=== PATIENT | male | born 1960 | race Caucasian/White ===

== ENCOUNTER 2020-01-22 09:07 | Inpatient (IN) ==
--- NOTE | 2020-01-04 13:31 | PAT Medication Instructions ---
Medication Instructions Date of Service January 04, 2020 Home Medications citalopram [Celexa] 20 mg PO QAM gabapentin 300 mg PO QID PRN rosuvastatin 5 mg PO QAM Take morning of surgery With a small sip of water, OTHERWISE NOTHING TO EAT OR DRINK AFTER MIDNIGHT: citalopram [Celexa] 20 mg PO QAM gabapentin 300 mg PO QID PRN (if needed) rosuvastatin 5 mg PO QAM Take evening before surgery gabapentin 300 mg PO QID PRN (if needed) Other Notes If you have any questions please call us at [phone] or [phone] or [phone] or [phone]
--- NOTE | 2020-01-08 10:25 | Anesthesiology Consultation ---
Date of Service January 08, 2020 Assessment & Plan (1) Encounter for pre-operative examination: Per PAT assessment on 01/01: Travel screen- Lives in [place]. Travel to [place]. No known COVID-19 positive contacts. Uses PPE. 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 Patient reports that there are current positive cases in residents/staff (Patient brandon has had negative work protocol covid testing- will be tested again 01/08). No current COVID-19 related symptoms for patient or fiance. Patient advised to notify surgeon if any development of symptoms in patient/fiance prior to surgery. Surgeon arranging preop COVID testing (01/15 at PCP). Awaiting results. Will plan for [facility]bot/rapid testing AM DOS d/t brandon's work hx. Chart Review Chart Review: Acceptable Risk for Surgery and Patient seen in Pre Admission Testing Teaching & Discussion Pre-Anesthesia Teaching/Discussion Notes: Instructed NPO after midnight before surgery,except medications with 15 cc of water. Medication instructions provided according to the PAT guidelines. History Surgery Operation Date: 01/22/20 07:45 Proposed Procedures p T11-L2 Decompression and Fusion, Possible L2-S1 Hardware Removal, Spinal Cord Monitoring - Jose M Tejada, Height/Weight Height: 5 ft 11 in Weight: 124 kg Allergies Allergy/AdvReac Type Severity Reaction Status Date / Time ibuprofen AdvReac Intermediate abdominal Verified 01/08/20 09:26 pain Medications Home Medications Medication Instructions Recorded Confirmed Last Taken citalopram [Celexa] 20 mg PO QAM 01/02/20 01/02/20 Unknown gabapentin 300 mg PO QID PRN 01/02/20 01/02/20 Unknown rosuvastatin 5 mg PO QAM 01/02/20 01/02/20 Unknown Past Medical History Medical History Anxiety Chronic back pain Hyperlipidemia Obesity Temporomandibular joint disorder + right sided clicking, no locking Exercise / Class Metabolic Activity III < 4 Walking/Shop/Light housework (uses cane PRN) Past Family History Family History Mother Family history of diabetes mellitus Past Surgical History Surgical History Fusion of spine lumbar H/O excision of mass hair follicle/mass from top of head excision History of repair of rotator cuff right Past Anesthesia History No Hx of Anesthesia Complications and No Family Hx of Anesthesia Complications History of PONV No Hx of PONV and No Hx of Motion Sickness Social History Smoking Status: Never smoker Do You Dip or Chew Tobacco: Yes (1 CAN/DAY- ADVISED NPO AM DOS) Hx Alcohol Use: Yes Alcohol type: beer Alcohol Intake Frequency Comment: RARE Hx Substance Use: No Review of Systems Patient denies chest pain, shortness of breath, dyspnea on exertion, joint pain, reflux, cough, wheezing, palpitations. Physical Exam Vital Signs VITALS BP P 57 TEMP 98.7 SP02 96%RA RESP 16 PHYSICAL Full neck and c-spine range of motion. Full TMJ range of motion. TMD 3.5 finger breaths Mallampati Score 1 Dentition: missing sides, lower right side chipped tooth Lungs: clear throughout to auscultation Cardiac: regular rate and rhythm, no murmurs noted Spine: normal Carotid arteries: negative bruit Extremities: no edema Thick neck + Trimmed jean Testing Laboratory Results 01/08/20 10:50 01/08/20 10:50 PT 10.8 Seconds (9.0-12.0) 01/08/20 10:50 INR 1.0 (0.9-1.1) 01/08/20 10:50 APTT 29.1 Seconds (21.0-31.0) 01/08/20 10:50 Urine Color Yellow 01/08/20 10:50 Urine Appearance Clear (Clear) 01/08/20 10:50 Urine pH 5.5 (4.5-7.5) 01/08/20 10:50 Ur Specific [place] 1.010 (1.000-1.030) 01/08/20 10:50 Urine Protein Negative (Negative) 01/08/20 10:50 Urine Glucose (UA) Negative (Negative) 01/08/20 10:50 Urine Ketones Negative (Negative) 01/08/20 10:50 Urine Nitrite Negative (Negative) 01/08/20 10:50 Ur Leukocyte Esterase Negative (Negative) 01/08/20 10:50 Urine RBC 0-4 /hpf (0-4) 01/08/20 10:50 Urine WBC 0-5 /hpf (0-5) 01/08/20 10:50 Ur Epithelial Cells 5-10 /lpf (0-5) H 01/08/20 10:50 Blood Type A Positive 01/08/20 10:50 Antibody Screen NEGATIVE 01/08/20 10:50 Electrocardiogram Date: 01/08/20 SB at 56bpm. Chest X-Ray Date: 01/08/20 Findings: + NAD
--- NOTE | 2020-01-08 11:24 | XRay Report ---
XR chest Pre-admission PA/Lat CLINICAL HISTORY: Preoperative evaluation. COMPARISON STUDY: Chest radiograph August 25, 2015. FINDINGS: Lung volumes are normal. Lungs are clear. There is no pneumothorax or pleural effusion. Car diac size is normal. Mediastinal contours are normal. There is no evidence for pulmonary edema. IMPRESSION: No acute cardiopulmonary findings. ACT 112: Negative or not required by law. Electronically signed by: Steve Wells M.D. 01/08/2020 11:23 AM
[2020-01-08 11:46] LABS: Basophils # (auto) 0.08 K/uL (0-0.2); Basophils % (auto) 1.7 %; Eosinophils # (auto) 0.12 K/uL (0-0.5); Eosinophils % (auto) 2.5 %; Hematocrit (blood only) 42.8 % (42-52); Hemoglobin 14.5 g/dL (14.0-18.0); Immature Granulocytes # (auto) 0.01 K/uL (0.00-0.02); Immature Granulocytes % (auto) 0.2 %; Lymphocytes # (auto) 2.02 K/uL (1.2-3.4); Lymphocytes % (auto) 42.2 %; Mean Corpuscular Hemoglobin 31.2 pg (25-34); Mean Corpuscular Hgb Conc 33.9 g/dL (32-36); Mean Platelet Volume 10.9 fL (7.4-10.4); Monocytes # (auto) 0.45 K/uL (0.11-0.59); Monocytes % (auto) 9.4 %; Neutrophils # (auto) 2.11 K/uL (1.4-6.5); Platelet Count 215 K/uL (130-400); RDW Coefficient of Variation 12.7 % (11.5-14.5); RDW Standard Deviation 42.7 fL (36.4-46.3); Red Blood Count 4.65 M/uL (4.7-6.1); White Blood Count 4.79 K/uL (4.8-10.8)
[2020-01-08 12:10] LABS: Partial Thromboplastin Time 29.1 Seconds (21.0-31.0); Prothrombin Time 10.8 Seconds (9.0-12.0)
[2020-01-08 12:34] LABS: Appearance Urine Clear (Clear); Bilirubin Urine Negative (Negative); Blood Urine Trace (Negative); Color Urine Yellow; Glucose Urine UA Negative (Negative); Ketones Urine Negative (Negative); Leukocyte Esterase Urine Negative (Negative); Nitrite Urine Negative (Negative); Protein Urine Negative (Negative); Urobilinogen Urine Negative (Negative); pH Urine 5.5 (4.5-7.5)
[2020-01-08 12:51] LABS: Mucus Urine Present (None Prsent)
[2020-01-08 12:54] LABS: Bacteria Urine Negative (Negative); RBC Urine 0-4 /hpf (0-4); WBC Urine 0-5 /hpf (0-5)
--- NOTE | 2020-01-08 13:11 | Electrocardiogram Report ---
Test Reason : Blood Pressure : / mmHG Vent. Rate : 056 BPM Atrial Rate : 056 BPM P-R Int : 134 ms QRS Dur : 112 ms QT Int : 448 ms P-R-T Axes : 051 020 038 degrees QTc Int : 432 ms Sinus bradycardia Otherwise normal ECG When compared with ECG of 25-AUG-2015 08:42, No significant change was found Confirmed by Juno Vincent ([id number]) on 01/08/2020 1:10:52 PM Referred By: Jose M Tejada Confirmed By:Juno Vincent
[2020-01-08 13:56] LABS: BUN Creatinine Ratio 7.5 (10-20); Creatinine Clr Calc Pharmacy 98.4 ml/min; Est GFR (Non-African American) 73.3; Potassium 4.4 mmol/L (3.5-5.1)
[~2020-01-22 09:07] MED LIST: ACETAMINOPHEN 500 MG TAB PO SCH; CEFAZOLIN 3000MG 72.5 ML IV SCH; CeleBREX 200 MG CAP PO SCH; GABAPENTIN 600 MG DOSE PO SCH; LR 15ML/HR IV SCH
--- NOTE | 2020-01-22 09:23 | History & Physical Bridge Note ---
Date of Service January 22, 2020 History & Physical Bridge Note I have examined the patient, reviewed the History & Physical and in the interval since the performance of the History & Physical I have noted the following changes of clinical significance: no changes noted
--- NOTE | 2020-01-22 09:24 | History & Physical Report ---
Date of Service January 22, 2020 Assessment & Plan (1) Lumbar stenosis with neurogenic claudication: Admission and Anticipated Discharge Date Admission Date: T11-L2 decompression fusion, possible L2-S1 hardware removal History of Present Illness Chief Complaint: Back and bilateral leg pain Primary Care Provider: Pnio Leon MD This is a 59-year-old male who presents with chronic persistent back and leg pain. After failing course of nonoperative care is here for surgical intervention. Allergies Allergy/AdvReac Type Severity Reaction Status Date / Time ibuprofen AdvReac Intermediate abdominal Verified 01/08/20 09:26 pain Home Medications Home Medications Medication Instructions Recorded Confirmed Type citalopram [Celexa] 20 mg PO QAM 01/02/20 01/02/20 History gabapentin 300 mg PO QID PRN 01/02/20 01/02/20 History rosuvastatin 5 mg PO QAM 01/02/20 01/02/20 History Past Med/Surg History Medical History Anxiety Chronic back pain Hyperlipidemia Obesity Temporomandibular joint disorder + right sided clicking, no locking Surgical History Fusion of spine lumbar H/O excision of mass hair follicle/mass from top of head excision History of repair of rotator cuff right Family History Mother Family history of diabetes mellitus Social History Smoking Status: Never smoker Second Hand Exposure: No; Do You Dip or Chew Tobacco: Yes (1 CAN/DAY- ADVISED NPO AM DOS); Hx Alcohol Use: Yes Alcohol type: beer Hx Substance Use: No Preferred Language: Latvian Communication Ability: Effective Program Production Specialist Required: No Beliefs That Will Affect Care: None Current Living Situation: Significant Other Other Information That Helps Us Care for You: No Feels Safe at Home: Yes Safety Concerns: Feels Safe At This Time Physical Exam Physical Exam: Patient is alert and oriented neurologically intact. Heart regular rate and rhythm. Lungs clear to auscultation.
[2020-01-22] MEDS ORDERED: MIDAZOLAM HCL 1 MG/ML 2ML VIAL ONE (09:35)
[2020-01-22] MEDS ORDERED: LIDOCAINE HCL 2% 2 ML VIAL/AMP(20MG/ML) INFIL ONE (09:35)
[2020-01-22] MEDS ORDERED: LARYING-O-JET KIT (LTA) ONE (09:35)
[2020-01-22] MEDS ORDERED: PROPOFOL IV EMULSION 10 MG/ML 20 ML VIAL IV ONE (09:35)
[2020-01-22] MEDS ORDERED: HYDROmorphone INJ 2 MG/ML SYR/VIAL ONE ×2 (09:35→12:20)
[2020-01-22] MEDS ORDERED: BACITRACIN INJ 50,000 UNIT VIAL ONE (09:36)
[2020-01-22] MEDS ORDERED: BUPIVACAINE/EPINEPHRINE 0.25% 1:200,000 30 ML VIAL ONE (09:36)
[2020-01-22] MEDS ORDERED: GLYCOPYRROLATE 0.2 MG/ML VIAL ONE (09:43)
[2020-01-22] MEDS ORDERED: NEOSTIGMINE METHYLSULFATE 1 MG/ML 10ML VIAL ONE (09:43)
[2020-01-22] MEDS ORDERED: ROCURONIUM BROMIDE 10 MG/ML 5 ML VIAL IV ONE (09:43)
[2020-01-22] MEDS ORDERED: PROMETHAZINE HCL 12.5 MG in SODIUM CHLORIDE 0.9% 50 ML IV PRN ×2 (10:38→15:00)
[2020-01-22] MEDS ORDERED: ePHEDrine sulfate 50 MG/ML AMP IV PRN (10:38)
[2020-01-22] MEDS ORDERED: HYDROmorphone INJ 2 MG/ML SYR/VIAL IV PRN (10:38)
[2020-01-22] MEDS ORDERED: ONDANSETRON INJ 2 MG/ML 2 ML VIAL IV PRN ×2 (10:38→15:00)
[2020-01-22] MEDS ORDERED: METOCLOPRAMIDE HCL INJ 5 MG/ML 2 ML VIAL IV PRN ×2 (10:38→15:00)
[2020-01-22] MEDS ORDERED: ATROPINE SULFATE 0.1 MG/ML 10ML SYR IV PRN (10:38)
[2020-01-22] MEDS ORDERED: fentaNYL citrate 100 MCG/2 ML VIAL IV PRN (10:38)
[2020-01-22] MEDS ORDERED: ALBUMIN HUMAN 5% 12.5 GM/250 ML VIAL IV ONE (11:14)
[2020-01-22] MEDS ORDERED: FLOSEAL HEMOSTATIC MATRIX 10ML TOP ONE (12:01)
--- NOTE | 2020-01-22 13:30 | Operative Report ---
Post Operative Report Pre & Post Diagnosis Operation Date: 01/22/20 10:35 Pre-Op Diagnosis: Spinal Stenosis, Lumbar Region with Neurogenic Claudication Post-Op Diagnosis: Spinal Stenosis, Lumbar Region with Neurogenic Claudication I identified the patient and participated in the time-out.: Yes Procedure Operation Date: 01/22/20 10:35 Actual Procedures 1. Decompression with bilateral medial facetectomies T12-L1 and L1-L2. #2 posterior spinal fusion T11-T12 T12-L1 L1-L2. #3 placement posterior instrumentation T11-L1 with shepherds hooks connecting to the previous instrumentation. #4 interbody fusion L1-L2. #5 placed a peek cage 9 x 26 mm at L1-L2. #6 placement of locally harvested morselized autograft and posterior gutters. #7 placement infuse collagen sponge, master graft and posterior gutters and ostial amp interbody space. Surgeon Jose M Tejada, DO Veterinary Inspector Maren Arizmendi Estimated Blood Loss 600 Findings See Below The patient is 5 foot 11 inches tall weighing over 122 kg with a BMI in excess of 37. This combined with an EBL in excess of 600 cc created significant technical difficulty. He required our deepest retractors longus instruments in order to perform his procedure. This at least 50% increase to the operative time. Specimens None Indications This is a 59-year-old male known to me the presents above-mentioned diagnosis after failing course of nonoperative care is here for the above-mentioned procedure. Description of Procedure Patient was met with identified informed consent obtained. Patient was then taken to the operative suite underwent elevation placed in a prone position on the Taco table on top of the Raul frame. All bony prominences well-padded eyes inspected to ensure no external pressure placed upon the. This point the thoracolumbar spine was prepped and draped in a sterile fashion. Sharp dissection with the assistance of Bovie cautery was performed down to and exposing the lamina and transverse processes of T11 T12-L1 and instrumentation at L2 and L3. I then performed complete laminectomy of L1 partial laminectomy of T12 including bilateral medial facetectomies and foraminotomies addressing severe stenosis. Pedicle screws in place T8 and T11-T12 12 and L1. Utilized using globus miller hooks and connectors appropriate size rods were contoured cut and placed. By way of transfer approach on the left complete discectomy of L1 to was performed endplates coated to subcortical bleeding bone and a 9 x 26 mm peek cage filled with osteo-bone graft tapped in position. The rods were locked in final position. The transverse processes of T11 T12-L1 and L2 were burred to subcortical bleeding bone. Infuse collagen sponge master graft local autograft was placed posterior gutters. 15 round DAMIEN drain inserted. The incision was then closed with 1 Vicryl the fascia 2-0 Vicryl subcutaneously and 4 Monocryl for final skin closure. Steri-Strip sterile dressings placed. Patient waken taken PACU stable condition. Please note spinal cord monitoring was utilized at the procedure no changes noted. Lastly Maren Arizmendi was present throughout the entire surgery involved in patient positioning complex portions of the surgery and final skin closure. I attest to the content of the Intraoperative Record and any orders documented therein. Any exceptions are noted below.
--- NOTE | 2020-01-22 14:19 | Fluoroscopy Report ---
FL lumbar spine 2-3V CLINICAL HISTORY: T11-L2 DECOMPRESSION AND FUSION COMPARISON STUDY: FLUOROSCOPY TIME: 26 seconds. NUMBER OF FLUOROSCOPIC IMAGES: 3 FINDINGS: 3 fluoroscopic images demonstrate postsurgical changes of thoracolumbar spinal fusion. Ther e are postsurgical changes of an L1-2 discectomy and interbody fusion. There is a right-sided pedicle screw at the T11 level, and bilateral pedicle screws the T12, L1, L2, and L3 levels. Spinal rods ext end into the lower lumbar spine which is not included on the provided images. IMPRESSION: Intraoperative fluoroscopic spot images obtained during a thoracolumbar spinal decompres teresita and fusion ACT 112: Negative or not required by law. Electronically signed by: Edouard Taylor M.D. 01/22/2020 2:18 PM
--- NOTE | 2020-01-22 14:38 | Anesthesiology Progress Note ---
Date of Service January 22, 2020 Anesthesia Post Procedure Vital Signs Vital Signs: Temp Pulse Pulse Resp BP Pulse Ox 01/22/20 14:25 36.3 C L 74 12 143/84 H 99 01/22/20 14:15 75 19 121/73 95 01/22/20 14:05 82 14 118/75 98 01/22/20 13:55 85 16 125/71 97 01/22/20 13:47 36.5 C 80 14 147/73 H 93 01/22/20 09:35 37.2 C 66 18 156/99 H 96 Pain Intensity Lower Back: Pain Intensity: 5 Transfer of Care Handoff Completed per policy Notes Mental Status: alert / awake / arousable and participated in evaluation Patient Amnestic to Procedure: Yes Nausea / Vomiting: adequately controlled Pain: adequately controlled Airway Patency, RR, SpO2: stable & adequate BP & HR: stable & adequate Hydration State: stable & adequate Anesthetic Complications: no major complications apparent
[2020-01-22] MEDS ORDERED: ALUMINUM/MAGNESIUM SUSP 30 ML UDC PO PRN (15:00)
[2020-01-22] MEDS ORDERED: DO NOT ADMINISTER FLU VACCINE PRN (15:00)
[2020-01-22] MEDS ORDERED: HYDROmorphone INJ 1 MG/ML SYRINGE IV PRN (15:00)
[2020-01-22] MEDS ORDERED: OXYCODONE HCL IR 5 MG TAB (IMMEDIATE RELEASE) PO PRN (15:00)
[2020-01-22] MEDS ORDERED: ONDANSETRON 4 MG OD TAB PO PRN (15:00)
[2020-01-22] MEDS ORDERED: LORazepam 0.5 MG TAB PO PRN (15:00)
[2020-01-22] MEDS ORDERED: LORazepam 0.5 MG/1 ML VIAL IV PRN (15:00)
[2020-01-22] MEDS ORDERED: SOD PHOSPHATE/SOD BIPHOSPHATE ENEMA 132 ML BTL PR PRN (15:00)
[2020-01-22] MEDS ORDERED: HYDROmorphone INJ 0.5 MG/0.5 ML SYR IV PRN (15:00)
[2020-01-22] MEDS ORDERED: NALOXONE HCL 0.4 MG/1 ML VIAL/CARP IV PRN (15:00)
[2020-01-22] MEDS ORDERED: bisacodyL 10 MG SUPP PR PRN (15:00)
[2020-01-22] MEDS ORDERED: MAGNESIUM HYDROXIDE SUSP 30 ML UDC PO PRN (15:00)
[2020-01-22] MEDS ORDERED: DO NOT ADMINISTER PNEUMOCOCCAL VACCINE PRN (15:00)
[2020-01-22] MEDS ORDERED: FAMOTIDINE 20 MG TAB PO PRN (15:00)
[2020-01-22] MEDS ORDERED: ACETAMINOPHEN 1,000 MG/100 ML VIAL IV PRN (15:00)
--- NOTE | 2020-01-22 15:34 | Consultation ---
Date of Consultation January 22, 2020 Assessment & Plan (1) Lumbar stenosis with neurogenic claudication: Status post T11-L2 decompression fusion by Dr. Tejada POD #0 EBL 600 mL; DAMIEN drain on 110 mL Tolerated procedure well Pain/wound management per Ortho Activity and therapy as directed by Ortho Encourage incentive spirometry, wean O2 as able Monitor H&H (2) Hyperlipidemia: continue crestor (3) Anxiety: continue celexa (4) Tobacco abuse: encourage nicotine cessation nicotine patch offered/pt declined chews 1 can/day (5) Obesity: BMI 37.7 encourage lifestyle modifications Disposition: per primary Follow up: PCP Wei Scott PA-C Pt was seen and examined in collaboration with Dr. Neville, please see addendum Thank you for this consultation. We will follow the patient with you during their hospital stay. You can reach a member of the [facility] Hospitalist Team 13/12 via pager @ [phone]. Supervising Physician Co-Signing Physician Notes Attending Addendum: care coordinated with LUCAS Neal please refer to her notes for full details, I agree with her notes patient seen and examined, records reviewed by myself as well on exam, patient seen resting in chair, comfortable, in good spirits Reports mild lightheadedness with upright position, but no presyncope, chest pain, shortness of breath, palpitations No nausea vomiting Reports mild sore throat no other symptoms VS noted and reviewed oriented x 3, not in distress, speaks in sentences with no effort nor accessory muscle use Dry oral mucosa normal rate, regular rhythm, no murmurs clear breath sounds bilaterally non distended, soft, nontender no bipedal edema, erythema, warmth no neuro deficits No labs yet for today ASSESSMENT AND PLAN Status post back surgery Blood pressure on the low normal side Continue IV NSS, patient encouraged to increase oral fluid intake Monitor BP closely Check hemoglobin tomorrow Anxiety Stable Continue Celexa Dyslipidemia Continue rosuvastatin other diagnoses and plan of care as per LUCAS Neal's notes Jackson Neville MD History of Present Illness Requesting Physician: Dr. Tejada Reason for Consultation: Post op medical management Attending Physician: Jose M Tejada DO History of Present Illness This is a 59-year-old male who has significant past medical history of chronic low back pain, hyperlipidemia, anxiety, obesity who presents for elective lumbar procedure by Dr. Tejada. He underwent T11-L2 decompression fusion and tolerated procedure well. Rachel is at bedside. Patient follows with REINA Scott of [facility]. He has history of anxiety and takes Celexa, "to keep him calm." Currently he feels his mood has been stable. His cholesterol is controlled on 5 mg of Crestor. Currently he denies any back pain or radicular symptoms. He denies any recent fever, chills, sweats, illness, dizziness, chest pain, shortness of breath, nausea, vomiting, abdominal pain. Prior to procedure he denies any difficulty with moving bowels or passing urine. He currently is disabled. He does chew 1 can of snuff daily, last being yesterday. He rarely uses alcohol. Pt records reviewed. Allergies Allergy/AdvReac Type Severity Reaction Status Date / Time ibuprofen AdvReac Intermediate abdominal Verified 01/22/20 09:24 pain Home Medications Home Medications Medication Instructions Recorded Confirmed Type citalopram [Celexa] 20 mg PO QAM 01/02/20 01/22/20 History gabapentin 300 mg PO QID PRN 01/02/20 01/22/20 History rosuvastatin 5 mg PO QAM 01/02/20 01/22/20 History Patient History Medical History (Updated 01/22/20 @ 15:47 by Sarah Novak PA-C) Anxiety Chronic back pain Hyperlipidemia Obesity Temporomandibular joint disorder + right sided clicking, no locking Surgical History Fusion of spine lumbar H/O excision of mass hair follicle/mass from top of head excision History of repair of rotator cuff right Family History Mother Family history of diabetes mellitus Social History Smoking Status: Never smoker Second Hand Exposure: No; Do You Dip or Chew Tobacco: Yes (1 CAN/DAY- ADVISED NPO AM DOS); Hx Alcohol Use: Yes Alcohol type: beer Hx Substance Use: No Preferred Language: Arabic Communication Ability: Effective Vending 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 Required: No Beliefs That Will Affect Care: None Current Living Situation: Significant Other Other Information That Helps Us Care for You: No Feels Safe at Home: Yes Safety Concerns: Feels Safe At This Time Review of Systems Review of Systems: All systems reviewed & are unremarkable except as noted in HPI & below Physical Exam Physical Exam: Constitutional: WD/WN, vitals as above, NAD, sitting up in bed, pleasant, conversing easily Head: Normocephalic, Atraumatic Eyes: PERRL, conjunctivae normal, anicteric sclerae ENMT: external ear and nose normal, oropharynx normal Neck: trachea midline, no thyromegaly normal visual inspection Respiratory: normal respiratory effort, lungs clear to auscultation, no wheeze, rales, rhonchi. Normal insp/exp effort, no accessory muscle use Cardiovascular: RRR, no murmur, no edema, SCD/TEDS Vessels: no JVD or carotid bruit Chest: normal inspection of chest Abdomen: normal bowel sounds, soft, nontender, no hepatosplenomegaly Musculoskeletal: no cyanosis or clubbing,active ROM to all ext x 4 , lumbar dressing CDI, DAMIEN drain intact with serosangineous drainage Skin: no rashes, warm and dry normal turgor Neurologic: PERRL, EOMI, accommodation nl, no face palsy, no dysarthria CN's II-XI intact bilaterally and moves all extremities Psychiatric: A+Ox3, euthymic affect Lymphatic: no cervical or axillary lymphadenopathy : deferred Results & Data ([facility]) Vital Signs (Past 12 Hours) Vital Signs Temp Pulse Pulse Resp BP Pulse Ox 01/22/20 14:55 36.5 C 81 20 130/72 95 01/22/20 14:25 36.3 C L 74 12 143/84 H 99 01/22/20 14:15 75 19 121/73 95 01/22/20 14:05 82 14 118/75 98 01/22/20 13:55 85 16 125/71 97 01/22/20 13:47 36.5 C 80 14 147/73 H 93 01/22/20 09:35 37.2 C 66 18 156/99 H 96 Laboratory Results preop lab work 01/08/2020 CBC: H&H 14.5/42.8, wbc 4.79, PLT 215 BMP Na 139, K 4.4, Bun 8, Cr 1.11 Covid-19 negative 01/22/20 Diagnostic Findings Lumbar Spine Xray: IMPRESSION: Intraoperative fluoroscopic spot images obtained during a thoracolumbar spinal decompression and fusion CXR: IMPRESSION: No acute cardiopulmonary findings. Medications Administered Acetaminophen (Acetaminophen 500 Mg Tab) 1,000 mg PO PREOP KRISTEN Stop: 01/22/20 18:00 Last Admin: 01/22/20 10:05 Dose: 1,000 mg Documented by: [id number] Celecoxib (Celebrex 200 Mg Cap) 200 mg PO PREOP KRISTEN Stop: 01/22/20 18:00 Last Admin: 01/22/20 10:06 Dose: 200 mg Documented by: [id number] Gabapentin (Gabapentin 600 Mg Dose) 600 mg PO PREOP KRISTEN Stop: 01/22/20 18:00 Last Admin: 01/22/20 10:07 Dose: 600 mg Documented by: [id number] Lactated Ringer's (Lr) 1,000 mls @ 15 mls/hr IV .Q24H KRISTEN Stop: 01/23/20 05:59 Last Infusion: 01/22/20 10:22 Dose: 0 mls/hr Documented by: [id number] Admin: 01/22/20 10:05 Dose: 15 mls/hr Documented by: [id number] Cefazolin Sodium (Ancef 3000mg) 72.5 mls @ 130 mls/hr IV PREOP KRISTEN; Protocol Stop: 01/22/20 18:00 Last Infusion: 01/22/20 15:10 Dose: 0 mls/hr Documented by: [id number] Admin: 01/22/20 10:18 Dose: 130 mls/hr Documented by: [id number] Sodium Chloride (Nss 1000ml) 1,000 mls @ 150 mls/hr IV .Q6H40M KRISTEN Stop: 02/21/20 14:59 Last Admin: 01/22/20 15:35 Dose: 150 mls/hr Documented by: [id number] Discontinued Medications Bacitracin (Bacitracin Inj 50,000 Unit Vial) Confirm Administered Dose 50,000 units .ROUTE .STK-MED ONE Stop: 01/22/20 09:37 Last Admin: 01/22/20 12:01 Dose: 50,000 units Documented by: [id number] Bupivacaine HCl/Epinephrine Bitart (Bupivacaine/Epinephrine 0.25% 1:200,000 30 Ml Vial) Confirm Administered Dose 30 ml .ROUTE .STK-MED ONE Stop: 01/22/20 09:37 Last Admin: 01/22/20 12:01 Dose: 30 ml Documented by: [id number] Miscellaneous ( Floseal Hemostatic Matrix 10ml) 30 ml TOP ONCE ONE Stop: 01/22/20 12:02 Last Admin: 01/22/20 13:26 Dose: 20 ml Documented by: [id number] ECG Rate (beats per minute): 56 Rhythm: sinus bradycardia
[2020-01-22] MEDS: SODIUM CHLORIDE 0.9% 1000ML 1,000 ML IV SCH ×2 (15:35→21:09)
[2020-01-22] MEDS: KETOROLAC 30 MG/ML VIAL IV SCH ×2 (15:47→20:47)
[2020-01-22] MEDS: CEFAZOLIN 2000MG 2,000 MG/15 ML SYR IV SCH (17:49)
[2020-01-22] MEDS: DOCUSATE SODIUM/SENNA 50/8.6MG TAB PO SCH (20:47)
[2020-01-22] MEDS ORDERED: COUGH DROP (SUGAR FREE) LOZ 24 LOZ/1 BOX BUCCAL STA (21:01)
[2020-01-23] MEDS: CEFAZOLIN 2000MG 2,000 MG/15 ML SYR IV SCH (01:43)
[2020-01-23] MEDS: KETOROLAC 30 MG/ML VIAL IV SCH ×2 (02:08→08:49)
[2020-01-23] MEDS: POLYETHYLENE (MIRALAX) 17 GM PACK PO SCH ×3 (05:42→17:52)
[2020-01-23 06:09] LABS: Basophils # (auto) 0.01 K/uL (0-0.2); Basophils % (auto) 0.1 %; Hematocrit (blood only) 33.2 % (42-52); Hemoglobin 11.1 g/dL (14.0-18.0); Immature Granulocytes # (auto) 0.02 K/uL (0.00-0.02); Immature Granulocytes % (auto) 0.2 %; Lymphocytes # (auto) 0.96 K/uL (1.2-3.4); Lymphocytes % (auto) 8.1 %; Mean Corpuscular Hemoglobin 31.8 pg (25-34); Mean Corpuscular Hgb Conc 33.4 g/dL (32-36); Mean Corpuscular Volume 95.1 fL (80-100); Mean Platelet Volume 10.7 fL (7.4-10.4); Monocytes # (auto) 0.73 K/uL (0.11-0.59); Monocytes % (auto) 6.1 %; Neutrophils # (auto) 10.18 K/uL (1.4-6.5); Neutrophils % (auto) 85.5 %; Platelet Count 181 K/uL (130-400); RDW Coefficient of Variation 12.9 % (11.5-14.5); RDW Standard Deviation 44.5 fL (36.4-46.3); Red Blood Count 3.49 M/uL (4.7-6.1)
[2020-01-23 06:47] LABS: Calcium 8.6 mg/dl (8.5-10.1); Creatinine Clr Calc Pharmacy 115.6 ml/min; Est GFR (African American) 103.9; Est GFR (Non-African American) 89.6; Potassium 4.9 mmol/L (3.5-5.1)
[2020-01-23] MEDS: CITALOPRAM 20 MG TAB PO SCH (08:48)
[2020-01-23] MEDS: ROSUVASTATIN CALCIUM 5 MG TAB PO SCH (08:48)
--- NOTE | 2020-01-23 08:50 | Hospitalist Progress Note ---
Date of Service January 23, 2020 Assessment & Plan (1) Lumbar stenosis with neurogenic claudication: Status post T11-L2 decompression fusion by Dr. Tejada POD #1 EBL 600 mL; DAMIEN drain total 550 mL Doing well postop Pain/wound management per Ortho Activity and therapy as directed by Ortho Encourage incentive spirometry Hgb: 11.1. Preop Hgb: 14.5. Consistent with acute blood loss anemia, dilution; monitor H&H (2) Hyperlipidemia: continue crestor (3) Anxiety: continue celexa (4) Tobacco abuse: chews 1 can/day encouraged nicotine cessation nicotine patch declined by patient (5) Obesity: BMI 37.7 encourage lifestyle modifications Disposition: per primary service Follow up: PCP Wei Scott PA-C Pt was seen and examined in collaboration with Dr. Cameron, please see addendum Thank you for this consultation. We will follow the patient with you during their hospital stay. You can reach a [facility] via pager @ [phone]. Admission and Anticipated Discharge Date Admission Date: January 22, 2020 Supervising Physician Co-Signing Physician Notes Attending addendum Patient was seen and examined in medical floor He is a status post back surgery Denies any symptoms this afternoon during my examination On examination Lying in bed comfortably Hemodynamically stable Clear chest Heart-S1-S2, regular Abdomen-benign Extremities-negative for any edema His labs and imaging studies reviewed Agree with assessment and plan as outlined above by REINA Thomas DR Subjective Pt seen and examined, Sitting up in bedside chair. POD #1 s/p T11-L2 decompression fusion. Post op pt reports is doing well. Reports pain controlled. Denies any extremity paresthesias or weakness. Had slight dizziness when stood this morning which passed quickly. Denies any nausea, vomiting. Eating breakfast without difficulty. Passing flatus. Able to urinate without difficulty this morning. Denies fever/chills, diaphoresis, FRENCH, syncope, neck pain, CP, SOB, palpitations, cough, choking, abdominal pain, extremity edema, rashes, urinary symptoms. Review of Systems Review of Systems: All systems reviewed & are unremarkable except as noted in HPI & below Physical Exam Physical Exam: General: no distress, obese Head: normocephalic, atraumatic Eyes: conjunctiva non-injected, anicteric ENT: normal inspection external ears, nose, mucous membranes moist Neck: supple, trachea midline Lungs: clear, no respiratory distress, no wheezing/rhonchi/rales CV: RRR, no murmur, no pretibial edema Abd: normal BS, soft, non-tender Back: +dressing intact and dry, +DAMIEN drain with serosanguineous drainage Ext: no cyanosis or erythema, no calf tenderness; pedal pushes and pulls intact bilaterally Neuro: A&O x 3, no focal deficits noted, normal affect Skin: warm, dry Results & Data Results & Data ([facility]) Vital Signs (Past 12 Hours) Vital Signs Temp Pulse Resp BP Pulse Ox 01/23/20 07:19 36.6 C 67 16 121/78 98 01/23/20 02:55 37.1 C 57 L 15 132/67 96 01/22/20 23:53 37.0 C 69 15 111/60 94 Laboratory Results Short CBC 01/23/20 Range/Units 05:21 WBC 11.90 H (4.8-10.8) K/uL Hgb 11.1 L (14.0-18.0) g/dL Hct 33.2 L (42-52) % Plt Count 181 (130-400) K/uL BMP 01/23/20 05:36 Sodium 141 Potassium 4.9 Chloride 109 H Carbon Dioxide 25 BUN 11 Creatinine 0.94 Glucose 127 H Calcium 8.6
--- NOTE | 2020-01-23 13:45 | Orthopedic Progress Note ---
Date of Service January 23, 2020 Assessment & Plan (1) Lumbar stenosis with neurogenic claudication: Admission and Anticipated Discharge Date Admission Date: January 22, 2020 We will initiate physical therapy monitor his DAMIEN operatively discharge home in the next few days. Subjective Patient's back and leg pain markedly improved. Physical Exam Physical Exam: Patient is comfortable is good strength testing. Results & Data ([facility]) Vital Signs (Past 12 Hours) Vital Signs Temp Pulse Resp BP BP Pulse Ox 01/23/20 12:45 37.1 C 82 18 135/75 99 01/23/20 07:19 36.6 C 67 16 121/78 98 01/23/20 02:55 37.1 C 57 L 15 132/67 96
[2020-01-23] MEDS: ACETAMINOPHEN 500 MG TAB PO PRN (17:51)
[2020-01-23] MEDS: DOCUSATE SODIUM/SENNA 50/8.6MG TAB PO SCH (20:54)
[2020-01-24] MEDS: POLYETHYLENE (MIRALAX) 17 GM PACK PO SCH (00:01)
[2020-01-24 07:14] LABS: Hematocrit (blood only) 32.7 % (42-52); Hemoglobin 10.3 g/dL (14.0-18.0); Mean Corpuscular Hemoglobin 29.7 pg (25-34); Mean Corpuscular Hgb Conc 31.5 g/dL (32-36); Mean Corpuscular Volume 94.2 fL (80-100); Mean Platelet Volume 10.7 fL (7.4-10.4); Platelet Count 171 K/uL (130-400); RDW Coefficient of Variation 13.1 % (11.5-14.5); RDW Standard Deviation 45.3 fL (36.4-46.3); Red Blood Count 3.47 M/uL (4.7-6.1); White Blood Count 9.69 K/uL (4.8-10.8)
[2020-01-24] MEDS: ACETAMINOPHEN 500 MG TAB PO PRN (07:24)
[2020-01-24] MEDS: TRAMADOL HCL 50 MG TABLET PO PRN ×5 (07:24→20:20)
[2020-01-24] MEDS: CITALOPRAM 20 MG TAB PO SCH (07:25)
[2020-01-24] MEDS: ROSUVASTATIN CALCIUM 5 MG TAB PO SCH (07:25)
[2020-01-24] MEDS: DEXAMETHASONE SOD PHOSPHATE 8 MG in SYRINGE 0 ML IV SCH (07:25)
[2020-01-24 07:35] LABS: BUN Creatinine Ratio 11.3 (10-20); Calcium 8.5 mg/dl (8.5-10.1); Creatinine Clr Calc Pharmacy 123.4 ml/min; Est GFR (African American) 110.5; Est GFR (Non-African American) 95.4; Potassium 4.3 mmol/L (3.5-5.1)
--- NOTE | 2020-01-24 08:08 | Orthopedic Progress Note ---
Date of Service January 24, 2020 Assessment & Plan (1) Lumbar stenosis with neurogenic claudication: Admission and Anticipated Discharge Date Admission Date: January 22, 2020 This time we will continue physical therapy monitor his DAMIEN output anticipate discharge home tomorrow. Subjective Back pain is controlled leg symptoms improved. Physical Exam Physical Exam: Patient is good strength testing appears comfortable. Results & Data ([facility]) Vital Signs (Past 12 Hours) Vital Signs Temp Pulse Resp BP BP Pulse Ox 01/24/20 07:15 36.7 C 85 20 114/67 97 01/23/20 22:59 37.0 C 70 16 101/58 L 96
--- NOTE | 2020-01-24 09:14 | Hospitalist Progress Note ---
Date of Service January 24, 2020 Assessment & Plan (1) Lumbar stenosis with neurogenic claudication: Status post T11-L2 decompression fusion by Dr. Tejada POD #2 EBL 600 mL; DAMIEN drain total 885 mL Doing well postop Pain/wound management per Ortho Activity and therapy as directed by Ortho Encourage incentive spirometry Hgb: stable at 10.3 (11.1 yesterday). Consistent with acute blood loss anemia, dilution; monitor H&H (2) Hyperlipidemia: continue crestor (3) Anxiety: continue celexa (4) Tobacco abuse: chews 1 can/day encouraged nicotine cessation nicotine patch declined by patient (5) Obesity: BMI 37.7 encourage lifestyle modifications Disposition: per primary service Follow up: PCP Wei Scott PA-C Pt was seen and examined in collaboration with Dr. Cameron, please see addendum Thank you for this consultation. We will follow the patient with you during their hospital stay. You can reach a member of the [facility] Team 13/12 via pager @ [phone]. Admission and Anticipated Discharge Date Admission Date: January 22, 2020 Supervising Physician Co-Signing Physician Notes Attending addendum Patient was seen and examined in medical floor He is a status post T 1L2 decompression and fusion Denies any complaints but drainage seems to be more than usual from the wound Has been ambulating well Examination No apparent distress at rest Chest-clear Heart-S1-S2, regular Abdomen-benign Extremities-negative His labs and imaging studies reviewed Agree with assessment and plan as outlined above by REINA Boyd Dr Subjective Patient seen and examined in 312. Mild surgical site pain. Tolerating diet well, no nausea or vomiting. Denies lightheadedness, visual changes, chest pain or SOB. No abdominal pain. Urinating without issue. + multiple bowel movements since yesterday. Review of Systems Review of Systems: At least ten systems reviewed and negative except as noted in the HPI. Physical Exam Physical Exam: General Appearance: WD/WN, vitals as above, NAD, pleasant, conversing easily Head: normocephalic, atraumatic Eyes: normal inspection ENT: external ear and nose normal, oropharynx normal Neck: normal visual inspection, trachea midline, no thyromegaly Respiratory: normal respiratory effort, lungs clear to auscultation, no wheeze, rales, rhonchi. No accessory muscle use Cardiovascular: regular rate, rhythm, no murmur, normal peripheral pulses, no BLE edema Chest: normal inspection of chest Abdomen/GI: normal bowel sounds, soft, nontender, no hepatosplenomegaly Extremities/Musculoskeletal: + Lumbosacral surgical dressing c/d/i. DAMIEN drain visualized. No cyanosis or clubbing, extremities motor strength 5/5 Neurologic: PERRL, no dysarthria, CN's II-XI intact bilaterally and moves all extremities Psychiatric: A+Ox3, euthymic affect Skin: no rashes, normal color, warm/dry Results & Data Results & Data ([facility]) Vital Signs (Past 12 Hours) Vital Signs Temp Pulse Resp BP BP Pulse Ox 01/24/20 07:15 36.7 C 85 20 114/67 97 01/23/20 22:59 37.0 C 70 16 101/58 L 96 Laboratory Results Short CBC 01/24/20 Range/Units 06:46 WBC 9.69 (4.8-10.8) K/uL Hgb 10.3 L (14.0-18.0) g/dL Hct 32.7 L (42-52) % Plt Count 171 (130-400) K/uL BMP 01/24/20 06:46 Sodium 141 Potassium 4.3 Chloride 108 H Carbon Dioxide 29 BUN 10 Creatinine 0.88 Glucose 89 Calcium 8.5
[2020-01-24] MEDS: ACETAMINOPHEN 500 MG TAB PO SCH ×2 (13:31→21:16)
[2020-01-24] MEDS: DOCUSATE SODIUM/SENNA 50/8.6MG TAB PO SCH (21:16)
[2020-01-25] MEDS: TRAMADOL HCL 50 MG TABLET PO PRN ×3 (00:31→11:08)
[2020-01-25] MEDS: ACETAMINOPHEN 500 MG TAB PO SCH (05:31)
[2020-01-25 06:39] LABS: Hematocrit (blood only) 32.8 % (42-52); Hemoglobin 10.6 g/dL (14.0-18.0); Mean Corpuscular Hemoglobin 30.6 pg (25-34); Mean Corpuscular Hgb Conc 32.3 g/dL (32-36); Mean Corpuscular Volume 94.8 fL (80-100); Mean Platelet Volume 11.3 fL (7.4-10.4); Platelet Count 206 K/uL (130-400); RDW Coefficient of Variation 13.2 % (11.5-14.5); RDW Standard Deviation 45.3 fL (36.4-46.3); Red Blood Count 3.46 M/uL (4.7-6.1); White Blood Count 13.59 K/uL (4.8-10.8)
[2020-01-25 07:17] LABS: Calcium 8.6 mg/dl (8.5-10.1); Creatinine Clr Calc Pharmacy 127.8 ml/min; Est GFR (African American) 112.1; Est GFR (Non-African American) 96.7; Potassium 4.2 mmol/L (3.5-5.1)
[2020-01-25] MEDS: ROSUVASTATIN CALCIUM 5 MG TAB PO SCH (07:18)
[2020-01-25] MEDS: CITALOPRAM 20 MG TAB PO SCH (07:18)
[2020-01-25] MEDS: DEXAMETHASONE SOD PHOSPHATE 8 MG in SYRINGE 0 ML IV SCH (07:19)
--- NOTE | 2020-01-25 10:22 | Discharge Summary ---
Date of Service January 25, 2020 Admission HPI Per Admitting Provider This is a 59-year-old male who presents with chronic persistent back and leg pain. After failing course of nonoperative care is here for surgical intervention. Principal Diagnosis Thoracolumbar spinal stenosis with neurogenic claudication Discharge Data Allergies Allergy/AdvReac Type Severity Reaction Status Date / Time ibuprofen AdvReac Intermediate abdominal Verified 01/22/20 09:24 pain Consultations 01/22/20 15:00 Consult Case Management - Discharge Planning Routine Consult Hospitalist Routine Procedures Performed Operation Date: 01/22/20 10:35 Actual Procedures p T11-L2 Decompression and Fusion, Interbody Cage L1-L2, Spinal Cord Monitoring - Jose M Tejada DO Ordered Studies 01/22/20 10:35 FL fluoroscopy <1hr Routine FL lumbar spine 2-3V Routine Hospital Course (1) Lumbar stenosis with neurogenic claudication: Patient underwent thoracolumbar decompression fusion tolerated this well was taken to the orthopedic floor postoperative. Postop day 1 he was up and ambulating leg symptoms improved. He progressed appropriately to postop day #2 on postop day 3 DAMIEN drainage decreased probably. Pain well controlled. Subsequent discharge home. Discharge orders instructions from the chart for further review. Total Time Total Time Spent Total Time Spent (In Minutes): 20 minutes Discharge Plan Discharge Items Patient Disposition: Home - Self-Care Reason For Visit: Spinal Stenosis, Lumbar Region with Neurogenic Cla Discharge Diagnosis: Lumbar spinal stenosis with neurogenic claudication Activity: As commented below Non-emergency contact: Primary Care Provider Call non-emergency contact if: you have any medication questions Follow-up/Referrals: Pino Leon MD [Primary Care Provider] - Diet: Regular Addtl Attending Provider Instructions: ACTIVITY RECOMMENDATIONS: SELF CARE INSTRUCTIONS AFTER THORACIC/LUMBAR FUSIONS 1. You may walk to your tolerance. It is good exercise for your legs and back. Expect some back and intermittent leg aches and pains. 2. You may perform "counter-top" level activities (make a sandwich, king with a project, etc.). 3. No bending or lifting of more than 10 pounds or back twisting of any nature (roll like a log when turning in bed). 4. You may ride in a car for 20-30 minutes at a time. No driving until after your first visit with your doctor. 5. Frequent changes of position and restricting sitting to 30 minutes at a time will help limit the amount of back spasms and stiffness you may experience. 6. You may discontinue the use of ambulatory aids (cane, crutches, etc.) once your strength and confidence allow. 7. You may sole edge inker machine the shower and let water strike your incision when you arrive home at least once daily. Do not take a tub bath, sit in a hot tub or go into a swimming pool until after your first recheck in the office. SPECIAL CARE INSTRUCTIONS: VERY IMPORTANT TO READ AND REVIEW A. Your surgical incision has been closed with a cosmetic suture under the skin that will dissolve in about 6 weeks. In 14 days, you can use a pair of clean scissors and cut the suture that is left outside of the skin at the ends of your incision. 1. The small skin tapes can be removed 7 days after surgery if they have not fallen off by that point. 2. You may keep the wound open to air as much as possible to promote healing after post-op day number 5 unless told otherwise by your doctor. 3. If you think the wound looks like it is becoming infected (redness or worsening drainage) and/or you are experiencing fever, chill or worsening back pain and muscle spasms, contact the office so that we may evaluate you as soon as possible. B. Complications are uncommon, but please contact us if you have any signs or symptoms of: 1. wound infection (fever higher than 102.5 degrees F, redness, separation of wound, drainage, or increasing pain from the incision) 2. blood clots in legs (pain, swelling, redness and warmth in legs) 3. urinary tract infection (fever higher than 102.5 degrees F, burning upon urination or increased frequency of urination) 4. nerve problems (inability to walk on your toes or heels, numbness, loss of bowel or bladder control) 5. any other symptoms that concern you C. Please call the office at if you have any concerns or questions about your operation or recovery. D. No smoking! Smoking drastically decreases the chance of a solid fusion. E. Do not take any anti-inflammatory medications (Indocin, Advil, Motrin, Aspirin, Naprosyn, etc.) as these may inhibit the chance of a solid fusion. Tylenol is okay to take for pain. MANAGING PAIN AFTER SPINAL SURGERY 1. Narcotic medication is intended for short-term use and will be provided for surgical pain. Surgical pain usually lasts for a period of 4-6 weeks. Narcotic medication includes Percocet, Vicodin, Darvocet, Tylenol #3 or Lortab. 2. Longer-term pain is more appropriately treated with non-narcotic medication such as Tylenol ES. 3. Muscle spasm is not appropriately treated with narcotics. Muscle relaxers such as Soma, Flexeril or Skelaxin can be used along with Tylenol ES. 4. Remember that we all live with some "aches and pains". This is not unusual or uncommon after an injury or as we get older. a. Back pain is expected and may include muscle spasms for 4 to 6 weeks after surgery. The pain should gradually improve. If the pain worsens for no apparent reason, please contact the office. b. Intermittent leg pain may also be experienced and should not be concerned about unless it worsens for no apparent reason. If so, please contact the office. 5. We will provide appropriate medication within the normal guidelines of their prescribed use. We will also be very cautious and aware of potential abuse and extended duration of patients' medication needs. a. Pain medications are for your comfort and to assist with sleep and rest so that the tissue can heal. They are not provided in order to return to normal activity and should not be used through the day. To do so or worsening pain at night can result from ongoing tissue damage and development of tolerance to the prescribed medicine. 6. Please allow 2-3 days to process refills. Prescriptions will not be mailed but must be picked up at the office. FOLLOW UP VISIT: Keep your scheduled follow-up appointment. Any questions, please call the office at . Pending Studies at Discharge: No Stand-Alone Forms: My [employer], Smoking Cessation Medications and DC Order Prescriptions: New tramadol 50 mg tablet 50 mg PO Q6H PRN (Reason: pain, moderate) Qty: 20 RF: 0 oxycodone 5 mg tablet 5 mg PO Q6H PRN (Reason: pain, severe) Qty: 20 RF: 0 Continued citalopram [Celexa] 20 mg Tablet 20 mg PO QAM RF: 0 gabapentin 300 mg Capsule 300 mg PO QID PRN (Reason: Pain) RF: 0 rosuvastatin 5 mg Tablet 5 mg PO QAM RF: 0 Discharge Orders: Discharge Order (Routine); Ordered 01/25/20 Ordered By: Jose M Tejada Admission Data Admit Date/Time: 01/22/20 14:18 Attending Provider: Jose M Tejada Admit Provider: Jose M Tejada Primary Care Provider: Pino Leon Other Providers: Rodrigue Velasquez ; Taz Cameron
== END 2020-01-25 11:45 | disposition home or self-care (01) | DRG 454 ==
LOC: ASU 09:07 → 3E 14:18